=== PATIENT | male | born 1985 | race African-American/Black ===

== ENCOUNTER → 2017-06-21 | Outpatient (CLI) | payer OTHER ==
[~2017-06-21] MED LIST: METHACHOLINE KIT (J7674) INH ONE; PROT1TAB2 PO
--- NOTE | 2017-06-21 13:48 | PFTRPT ---
Tech: Chun RIGGINS RRT Age: 31 Sex: Male Race: Black Height: 69.00 Inches Weight: 176.00 Lbs BSA: 1.96 Diagnosis: R06.02 METHACHOLINE CHALLENGE REPORT: ORDERING PROVIDER: Gianfranco Villaseñor MD DATE OF SERVICE: 06/21/17 INTERPRETATION: The study was of excellent technical quality. Under protocol, methacholine was administered. At a dose of 10 mg (63.875 CDUs), a 25% decline in the FEV1 was noted. The PC20 of 4.96 is significant. Flow rates returned to baseline post bronchodilator administration. IMPRESSION: Positive methacholine challenge study. MTDD
== END ==
LOC: M CARPUL 09:50
PROVIDERS: ATTEND Internal Medicine Pulmonary Disease
DX: R06.02 Shortness of breath (principal)
CPT/HCPCS: 94070; J7674

== ENCOUNTER 2017-08-14 22:55 | Emergency (ER) | payer OTHER ==
[~2017-08-14] VITALS: Ht 172.7 cm; Wt 86.4 kg
[2017-08-15] MEDS ORDERED: GI COCKTAIL 50ML BTL(HYOSCYAMINE/MAALOX/LIDOCAINE VISCOUS)(1:3:1) PO ONE (01:15)
[2017-08-15 01:20] VITALS: BP 124/67
[2017-08-15] MEDS ORDERED: PROT1TAB2 PO (01:56)
[2017-08-15] MEDS ORDERED: PANTOPRAZOLE 40MG TAB (PROTONIX) PO ONE (02:00)
--- NOTE | 2017-08-15 08:38 | ECGEPIP ---
Stationary ECG Study [facility] - ED Test Date: 2017-08-14 Pat Name: MATILDE PICKENS Department: Room: - Gender: M [employer] M[employer] Analysis: ct : 1985 Requested By: SHANIKA Aguayo Order Number: [id number] Reading MD: Collin Gustafson Measurements Intervals [place] Rate: 54 P: 57 MN: 184 QRS: 59 QRSD: 99 T: -26 QT: 448 QTc: 426 Interpretive Statements SINUS BRADYCARDIA ST ELEVATION CONSISTENT WITH EARLY REPOLARIZATION NONSPECIFIC ST & T-WAVE ABNORMALITY NO PRIORS Electronically Signed On 08-15-2017 8:37:50 EDT by Collin Gustafson
== END 2017-08-15 02:14 | disposition home or self-care (01) ==
LOC: M ED 22:55
DX: K21.9 Gastro-esophageal reflux disease without esophagitis (principal); F17.210 Nicotine dependence, cigarettes, uncomplicated